=== PATIENT | female | born 1940 | race Caucasian/White ===

== ENCOUNTER 2023-08-03 10:10 | Observation (INO) | payer MEDICARE, SELFPAY ==
[2023-08-03 10:11] VITALS: BP 126/73; PULSE 64; RESP 15; TEMP 36.2; O2SAT 96; BMI 22.8
--- NOTE | 2023-08-03 10:29 | EKG12_ITS ---
Test Reason : NAUSEA Blood Pressure : / mmHG Vent. Rate : 048 BPM Atrial Rate : 048 BPM P-R Int : 152 ms QRS Dur : 088 ms QT Int : 462 ms P-R-T Axes : -07 -20 023 degrees QTc Int : 412 ms Sinus bradycardia Moderate voltage criteria for LVH, may be normal variant ( Sokolow-Hare , [place] product ) Borderline ECG Confirmed by CATY GARCIA, EBONY ([id number]), editor in chief MINNIE MITCHELL ([id number]) on 08/06/2023 10:43:58 AM Referred By: SAMMY/MADISYN Confirmed By:EBONY BYRNE MD
--- NOTE | 2023-08-03 10:50 | NURSING ---
NO OLD EKGS
--- NOTE | 2023-08-03 10:56 | EX.ED.DYSGE1 ---
HPI History of Present Illness Chief Complaint: Nausea/Vomiting Narrative Narrative: 82-year-old female presents with nausea and vomiting/dry heaving that she has had for the last week. She and her relate history that on Friday of the week before last, they flew to [place] and then flew home. Everyone started having symptoms of URI/cold symptoms. On Friday of last week, 7 days ago, she began having nausea and vomiting. She tested positive for COVID at that time, then again later in the week. She states that now she is currently dry heaving but when she does vomit it is liquid without any hematemesis. She is not having diarrhea. No prior abdominal surgeries. No abdominal pain. She denies other symptoms except for the nausea and dry heaving, although she may feel lightheaded and dizzy at times. No headaches. It is not necessarily worse with standing. [facility] Medical History (Updated 08/03/23 @ 12:05 by Miguel Gant MD) COVID Home Medications aspirin 81 mg tablet,delayed release (Adult Low Dose Aspirin) 81 mg PO DAILY 08/03/23 [History Last Taken Unknown] calcium carb-ergocalciferol (vit D2) 600 mg calcium-200 unit tablet 1 tab PO DAILY 08/03/23 [History Last Taken Unknown] hydrochlorothiazide 25 mg tablet 25 mg PO DAILY 08/03/23 [History Last Taken Unknown] vitamin B complex (B Complex-Vitamin B12 tablet) 1 tab PO DAILY 08/03/23 [History Last Taken Unknown] Allergy/AdvReac Type Severity Reaction Status Date / Time cephalexin Allergy Mild NAUSEA,CHIL Verified 08/03/23 10:11 LS Social History Smoking Status: Never smoker ROS ROS ED ROS Narrative Constitutional: No fever, no chills. HEENT: No sore throat. No neck pain. No loss of vision. No rhinorrhea. Cardiovascular: No chest pain. No palpitations. No pedal edema. Respiratory: No cough, no shortness of breath. Abdominal: No abdominal pain. Positive nausea and vomiting/dry heaving. No diarrhea. Genitourinary: No dysuria. No hematuria. Musculoskeletal: No myalgias. No arthralgias. Neurologic: No headaches. No dizziness. No lightheadedness. Skin: No rash. No change in color. Psychiatric: No depression. No anxiety. EXAM Physical Exam Narrative Exam Narrative: Afebrile. Vital signs noted. HEENT: Normocephalic. Atraumatic. PERRL, EOMI. Neck soft and supple. No point tenderness or step off. Cardiovascular: Regular rate and rhythm. No murmurs, rubs, or gallops appreciated. Respiratory: No tachypnea. Lungs clear to auscultation bilaterally. Gastrointestinal: Abdomen soft, nontender, with normoactive bowel sounds. No rebound or guarding. Neurological: Awake. Alert. Nonfocal, nonlateralizing. Skin: No rash. Normal color. No pallor. Musculoskeletal: No pedal edema. Full range of motion extremities. Const Vital Signs: 08/03/23 10:11 08/03/23 11:59 Temperature 97.2 F L 97.8 F Temperature Source Temporal Oral Pulse Rate 64 60 Respiratory Rate 15 18 Blood Pressure 126/73 H 156/92 H Blood Pressure Mean 90 113 Pulse Ox 96 97 Oxygen Delivery Method Room Air Room Air MDM MDM MDM Narrative Medical decision making narrative: In the differential diagnosis is COVID-19 with GI symptoms versus small bowel obstruction. I do have lower suspicion for bowel obstruction as she has not had prior surgeries. I will obtain abdominal series x-rays. She will be treated symptomatically with IV fluids and ondansetron. Also the differential diagnosis is pancreatitis, but once again she is not having any abdominal pain, but I will obtain CBC, CMP, and lipase is also to look for dehydration. She will be bolused normal saline 1 L intravenously. RN ordered EKG was obtained and interpreted by myself independently as normal sinus rhythm/bradycardia at 48 bpm with out ectopy or acute ST changes. No STEMI. I reviewed her laboratory work and she has a low white count of 3.7 which is consistent with her diagnosis of COVID. Hemoglobin slightly hemoconcentrated at 15.5, hematocrit 43.7, platelet count 205. Sodium is low at 126 with a potassium of 2.9, chloride 89 consistent with dehydration. BUN is normal at 7, creatinine 0.55. Her potassium will be replaced intravenously. Given her hyponatremia and hypokalemia, I discussed patient with Dr. Nando Negron for observation. It was not felt that she needed PCU because her EKG shows no sign of ectopy. Disposition is assigned to observation. Patient is in stable condition. History & Record Review Discussion w/independent historian: Patient and Family Additional record(s) reviewed:: Prior ED visit Lab Data Attestation: I reviewed the patient's lab results. Labs: Laboratory Results - last 24 hr 08/03/23 10:50 WBC 3.7 L RBC 5.23 Hgb 15.5 H Hct 43.7 MCV 83.6 MCH 29.6 MCHC 35.5 RDW Std Deviation 36.2 RDW Coeff of Erinn 11.9 Plt Count 205 MPV 10.7 Immature Gran % (Auto) 0.500 Neut % (Auto) 62.2 Lymph % (Auto) 18.6 L Victoria % (Auto) 16.8 H Eos % (Auto) 1.4 Baso % (Auto) 0.5 Absolute Neuts (auto) 2.3 Absolute Lymphs (auto) 0.69 L Nucleated RBC % 0 Sodium 126 L Potassium 2.9 L Chloride 89 L Carbon Dioxide 29.0 Anion Gap 8 BUN 7 Creatinine 0.55 Estim Creat Clear Calc 34.49 Est GFR (MDRD) Af Amer 135 Est GFR (MDRD) Non-Af 112 BUN/Creatinine Ratio 12.7 Glucose 106 Calcium 8.8 Total Bilirubin 0.60 AST 27 ALT 21 Alkaline Phosphatase 67 Total Protein 6.5 Albumin 3.3 Globulin 3.2 Albumin/Globulin Ratio 1.0 Lipase 77 H Management Discussion w/another healthcare provider: Hospitalist (Dr. Cline) Discharge Plan Dx/Rx/DC Orders Clinical Impression: Hyponatremia, Nausea and vomiting, Hypokalemia Disposition Disposition: Acute Care Hospital [facility]
[2023-08-03] MEDS: Ondansetron 4 MG/2 ML Vial IV (11:02)
[2023-08-03] MEDS: 0.9% Normal Saline 1,000 ML 1000 ML IV (11:02)
[2023-08-03 11:09] LABS: Absolute Lymphocyte Count 0.69 X10^3/uL (0.83-4.51); Absolute Neutrophil Count 2.3 X10^3/uL (2.0-7.7); Basophil# 0.02 X10^3/uL; Basophil% 0.5 % (0-1); Eosinophil# 0.05 X10^3/uL; Eosinophils% 1.4 % (0-5); Hematocrit 43.7 % (37-47); Hemoglobin 15.5 g/dL (12.0-15.0); Lymphocyte # 0.69 X10^3/ul (0.83-4.51); Lymphocyte % 18.6 % (19-41); Mean Corp Hgb Conc 35.5 g/dL (32-36); Mean Corpuscular Hgb 29.6 pg (27.0-32.0); Mean Corpuscular Volume 83.6 fL (81-99); Mean Platelet Vol. 10.7 fl (6.2-12.0); Monocyte# 0.62 X10^3/uL; Monocyte% 16.8 % (0-10); NRBC Flagged by Analyzer 0 % (0-5); Neutrophil % 62.2 % (47-70); Platelet Count 205 K/mm3 (150-450); RBC Distribution Width CV 11.9 % (11.6-14.6); RBC Distribution Width SD 36.2 fl (35.1-43.9); Red Blood Count 5.23 M/mm3 (4.2-5.4); White Blood Count 3.7 K/mm3 (4.4-11.0)
--- NOTE | 2023-08-03 11:15 | RAD_ITS ---
STUDY: X-RAY - ACUTE ABDOMINAL SERIES REASON FOR EXAM: Female, 82 years old. Nausea and vomiting TECHNIQUE: Single view of the chest. Supine, and erect view(s) of the abdomen were obtained. COMPARISON: None. FINDINGS: The lungs are clear and expanded. Normal size heart. Normal mediastinum and ivk. Normal visualized pulmonary arteries. There is atherosclerotic calcification of the aortic arch with tortuosity. There is a normal bowel gas pattern. The soft tissue structures of the abdomen and pelvis are unremarkable. There is demineralization of the visualized osseous structures. There is mild degenerative change of the spine. RAD/Acute Abdomen Inc Chest IMPRESSION: No obstruction. No focal infiltrate. Electronically Signed: Cesar Ferreira MD at 12:18 EDT ,
[2023-08-03 11:21] LABS: AST(SGOT) 27 U/L (15-37); Alanine Aminotransfer ALT/SGPT 21 U/L (13-56); Albumin, Serum 3.3 g/dL (3.2-5.0); Alkaline Phosphatase 67 U/L (45-117); Anion Gap 8 (5-15); BUN 7 mg/dL (7-18); BUN/Creat Ratio 12.7 RATIO (10-20); Calcium,Total 8.8 mg/dL (8.5-10.1); Chloride 89 mmol/L (98-107); Creatinine, Serum 0.55 mg/dL (0.55-1.02); EST Glomerular Filtration Rate 112 mL/min (>60); Est Glom Filt Rate - Afr Amer 135 mL/min (>60); Estimated Creatinine Clearance 34.49 ml/min; Globulin 3.2 g/dL (2.2-4.2); Glucose 106 mg/dL (74-106); Lipase 77 U/L (13-75); Potassium 2.9 mmol/L (3.5-5.1); Protein, Total 6.5 g/dL (6.4-8.2); Sodium Level 126 mmol/L (136-145)
[2023-08-03] MEDS: Potassium Chloride Oral Tablet 20 MEQ 40 MEQ PO (11:50)
[2023-08-03 11:59] VITALS: BP 156/92; PULSE 60; RESP 18; TEMP 36.6; O2SAT 97
--- NOTE | 2023-08-03 12:02 | NURSING ---
DR CHINYERE MARS
--- NOTE | 2023-08-03 12:27 | PCM.HP.STD ---
[facility] - General General Date of Service: 08/03/23 Chief Complaint: nausea. dry heaves. HPI Narrative NICOLE PAGAN, is a 82 F who presents presents with a week history of nausea and dry heaves. Patient contracted COVID and has been feeling this way ever since. Unable to tolerate any oral. Since his symptoms have been going on for so long, patient presented to the emergency room. In the emergency room, patient was noted to have a sodium 126 and potassium of 2.9. Patient did receive IV fluids as well as potassium replacement. Patient does take hydrochlorothiazide for hypertension. Patient has no baseline labs available in our system but has never been told that she has had any issues with her potassium or sodium in the past. COUNT INCLUDES THE [facility] Medical History (Updated 08/03/23 @ 12:[address] Nando Cline DO) HTN (hypertension) Home Medications aspirin 81 mg tablet,delayed release (Adult Low Dose Aspirin) 81 mg PO DAILY 08/03/23 [History Last Taken Unknown] calcium carb-ergocalciferol (vit D2) 600 mg calcium-200 unit tablet 1 tab PO DAILY 08/03/23 [History Last Taken Unknown] hydrochlorothiazide 25 mg tablet 25 mg PO DAILY 08/03/23 [History Last Taken Unknown] vitamin B complex (B Complex-Vitamin B12 tablet) 1 tab PO DAILY 08/03/23 [History Last Taken Unknown] Allergy/AdvReac Type Severity Reaction Status Date / Time cephalexin Allergy Mild NAUSEA,CHIL Verified 08/03/23 10:11 LS Social History Smoking Status: Never smoker ROS ROS Narrative No fever or chills. No shortness of breath. All review of systems were negative except as mentioned above in the history of present illness and the other review of systems. Vital Signs Vital Signs Vital Signs: 08/03/23 10:11 08/03/23 11:59 Temperature 36.2 C L 36.6 C Temperature Source Temporal Oral Pulse Rate 64 60 Respiratory Rate 15 18 Blood Pressure 126/73 H 156/92 H Blood Pressure Mean 90 113 Pulse Ox 96 97 Oxygen Delivery Method Room Air Room Air Weight Weight: 51.256 kg Body Mass Index (BMI) 22.8 Physical Exam Const alert and no apparent distress Constitutional Narrative: Appears younger than stated age. HEENT normocephalic HEENT Narrative: Mucous membranes are slightly dry Resp normal respiratory effort, no retractions, no use of accessory muscles and clear to auscultation bilaterally Cardio regular rate, regular rhythm, S1 normal heart sound and S2 normal heart sound GI normal to inspection, nondistended, normoactive bowel sounds, soft to palpation, non-tender and non-distended Extremity normal to inspection Neuro moves all extremities and no focal motor deficits Sensorium / Orientation: awake and alert Psych affect normal Results Lab / Micro Data Attestation: I reviewed the patient's lab results. 08/03/23 10:50 08/03/23 10:50 Labs: Laboratory Results - last 24 hr 08/03/23 10:50: WBC 3.7 L, RBC 5.23, Hgb 15.5 H, Hct 43.7, MCV 83.6, MCH 29.6, MCHC 35.5, RDW Std Deviation 36.2, RDW Coeff of Erinn 11.9, Plt Count 205, MPV 10.7, Immature Gran % (Auto) 0.500, Neut % (Auto) 62.2, Lymph % (Auto) 18.6 L, Eagle % (Auto) 16.8 H, Eos % (Auto) 1.4, Baso % (Auto) 0.5, Absolute Neuts (auto) 2.3, Absolute Lymphs (auto) 0.69 L, Nucleated RBC % 0, Sodium 126 L, Potassium 2.9 L, Chloride 89 L, Carbon Dioxide 29.0, Anion Gap 8, BUN 7, Creatinine 0.55, Estim Creat Clear Calc 34.49, Est GFR (MDRD) Af Amer 135, Est GFR (MDRD) Non-Af 112, BUN/Creatinine Ratio 12.7, Glucose 106, Calcium 8.8, Total Bilirubin 0.60, AST 27, ALT 21, Alkaline Phosphatase 67, Total Protein 6.5, Albumin 3.3, Globulin 3.2, Albumin/Globulin Ratio 1.0, Lipase 77 H EKG Initial EKG: Attestation: I personally reviewed and interpreted this EKG as follows: Prior EKG tracings: available for review EKG Rhythm Intrepretation: Sinus Rhythm Radiology Impression Acute Abdomen Series 08/03/23 11:15 IMPRESSION: No obstruction. No focal infiltrate. Electronically Signed: Cesar Ferreira MD at 12:18 EDT , Assessment & Plan Assessment/Plan (1) Hyponatremia: PLAN: Secondary to dehydration, lack of adequate oral intake but also likely compounded by patient taking hydrochlorothiazide. Patient received IV fluids in the emergency room and will continue to replace on the floor. Also hold hydrochlorothiazide. I would recommend holding hydrochlorothiazide moving forward as her sodium is concerning to be much lower than would be anticipated just with dehydration. If patient would require some antihypertensives upon discharge I would utilize some other agent. (2) Hypokalemia: PLAN: As above with hyponatremia due to dehydration, lack of oral intake and hydrochlorothiazide. Did receive replacement in the emergency room and will continue with replacement on the floor. Check a magnesium level. (3) Nausea and vomiting: QUALIFIERS: Vomiting type: unspecified Qualified Code(s): R11.2 - Nausea with vomiting, unspecified PLAN: Active dry heaves on actual emesis. As needed medications as needed Diet as tolerated May be related with COVID-19. (4) COVID: PLAN: Contracted about 7 days ago. Patient will need to quarantine through the 6. Patient out of window for treatment nor is she ill enough to warrant treatment at this time. Supportive management PLAN: Plan VTE prophylaxis: Low risk given observation status. Case discussed with the patient's and son at bedside. Discussed with the patient's daughter over the phone. Patient and family made aware that she is going to be brought under observation status which lead to potentially higher co-pay compared to an admission. Charges/Coding Visit Charges Inpatient E&M: 48213 Init Hosp L2
[2023-08-03 12:31] VITALS: BP 146/86; PULSE 58; RESP 14; TEMP 36.6; O2SAT 96
--- NOTE | 2023-08-03 12:34 | ED.RN ---
called pharmacy to inquire about IV fluid order
[2023-08-03] MEDS: KCL 40mEq in 0.9% NS 40 MEQ/1,000 ML IV.SOLN 250 MEQ IV (12:45)
[2023-08-03 13:15] VITALS: BMI 22.4
[2023-08-03 13:19] VITALS: BP 158/75; PULSE 55; RESP 16; TEMP 36.7; O2SAT 97
[2023-08-03] MEDS: KCL 20MEQ in 0.9% NS 20 MEQ/1,000 ML IV.SOLN. 150 MEQ IV (19:12)
[2023-08-03 20:18] VITALS: BP 159/68; PULSE 56; RESP 16; TEMP 36.5; O2SAT 96
[2023-08-03 22:21] VITALS: BP 156/62
[2023-08-04 02:00] VITALS: BP 155/58; PULSE 50; RESP 16; TEMP 36.8; O2SAT 97
[2023-08-04 06:44] VITALS: BP 164/56; PULSE 52; RESP 16; TEMP 36.7; O2SAT 97
[2023-08-04 07:41] LABS: Anion Gap 4 (5-15); BUN 7 mg/dL (7-18); BUN/Creat Ratio 17.3 RATIO (10-20); Calcium,Total 8.1 mg/dL (8.5-10.1); Chloride 108 mmol/L (98-107); EST Glomerular Filtration Rate 160 mL/min (>60); Est Glom Filt Rate - Afr Amer 193 mL/min (>60); Estimated Creatinine Clearance 33.85 ml/min; Glucose 94 mg/dL (74-106); Potassium 3.8 mmol/L (3.5-5.1); Sodium Level 138 mmol/L (136-145)
[2023-08-04 09:35] VITALS: BP 180/77; PULSE 55; RESP 18; TEMP 36.9; O2SAT 99
[2023-08-04] MEDS: Aspirin E.C. 81 MG Tablet PO (09:37)
[2023-08-04] MEDS: Calcium Carb/Vitamin D 1 TABLET Tablet PO (09:37)
[2023-08-04] MEDS: Vitamin B Comp W-C Capsule 1 CAP PO (09:37)
--- NOTE | 2023-08-04 10:17 | DCINST_ITS ---
Discharge Instructions Diet Discharge Diet: No restrictions Activity Discharge Activity: Return to Normal Activity Dressing / Incision Call your doctor if you observe: Fever of 101 or Higher, Shortness of breath, Dizziness, Fainting spells, Swelling in the ankles, Chest pain and Increased palpitations (irregular heartbeat) Follow Up Care Test Results: Test results from this visit will be discussed in further detail at your follow- up appointment, if applicable. Discharge Plan Admission Admit Date/Time: 08/03/23 12:23 Attending Provider: Glenn Quinonez Primary Care Provider: Care Physician,No Primary Consulting Providers: Nando Cline Instructions Additional Instructions / Restrictions: Follow-up with your primary care physician in 3 to 5 days to obtain outpatient lab work to monitor your sodium as it was low to 126 when you present to the hospital. This could have been a combination of dehydration as well as vomiting and your hydrochlorothiazide. I will restart your hydrochlorothiazide however I do recommend following your sodium as an outpatient and if it does drop again I would recommend switching blood pressure medications. Discharge Orders/Prescriptions Prescriptions: Continued aspirin [Adult Low Dose Aspirin] 81 mg tablet,delayed release (DR/EC) 81 mg PO DAILY hydrochlorothiazide 25 mg tablet 25 mg PO DAILY calcium carbonate-vitamin D2 600 mg calcium- 200 unit tablet 1 tab PO DAILY vitamin B complex [B Complex-Vitamin B12] Tablet 1 tab PO DAILY Referrals / Follow Up: Care Physician,No Primary [Primary Care Provider] - Disposition Disposition (needs filled in before D/C Order can be placed): Home, Self Care
[2023-08-04] MEDS: hydroCHLOROthiazide 25 MG Tablet PO (11:12)
--- NOTE | 2023-08-04 12:50 | DS.PCM_ITS ---
Providers Date of Admission: 08/03/23 Primary Care Physician: No Primary Care Phys Reason For Visit: HYPOKALEMIA Diagnosis Discharge Diagnosis (1) Hyponatremia: Status: Acute Code(s): E87.1 - Hypo-osmolality and hyponatremia (2) Hypokalemia: Status: Acute Code(s): E87.6 - Hypokalemia (3) Nausea and vomiting: Status: Acute Code(s): R11.2 - Nausea with vomiting, unspecified Qualifiers: Vomiting type: unspecified Qualified Code(s): R11.2 - Nausea with vomiting, unspecified (4) COVID: Status: Acute Code(s): U07.1 - COVID-19 Medications at Discharge Home Medications aspirin 81 mg tablet,delayed release (Adult Low Dose Aspirin) 81 mg PO DAILY 08/03/23 calcium carb-ergocalciferol (vit D2) 600 mg calcium-200 unit tablet 1 tab PO DAILY 08/03/23 hydrochlorothiazide 25 mg tablet 25 mg PO DAILY 08/03/23 vitamin B complex (B Complex-Vitamin B12 tablet) 1 tab PO DAILY 08/03/23 Hospital Course Operations None Procedures None Summary of Care Provided Minutes Spent on Discharge: 33 Hospital Course: Per HPI: NICOLE PAGAN, is a 82 F who presents presents with a week history of nausea and dry heaves. Patient contracted COVID and has been feeling this way ever since. Unable to tolerate any oral. Since his symptoms have been going on for so long, patient presented to the emergency room. In the emergency room, patient was noted to have a sodium 126 and potassium of 2.9. Patient did receive IV fluids as well as potassium replacement. Patient does take hydrochlorothiazide for hypertension. Patient has no baseline labs available in our system but has never been told that she has had any issues with her potassium or sodium in the past. Hospital Course: 1. Nausea vomiting with hyponatremia and hypokalemia secondary to COVID? 82-year-old female presented to the hospital with nausea and vomiting from COVID. Symptoms started about a week ago. She is not requiring any oxygen so she was not started on any steroids or remdesivir. Today she states that her nausea and vomiting have completely resolved and she was able to tolerate breakfast prior to being discharged. I did discuss with her the plan for possible discharge today and she expressed understanding of the risk benefits of going home and would like to go home today. Of note she does have a history of hypertension is on hydrochlorothiazide, this was held on admission secondary to her hyponatremia down to 126 however today on lab work at 138 and I feel that this is likely combination of both her hydrochlorothiazide as well as her vomiting and dehydration. Given the fact that her systolics today were 180 we will restart her hydrochlorothiazide and have her follow-up with her PCP in 3 to 5 days for outpatient monitoring. If her sodium does drop again would recommend transitioning to a different antihypertensive medication. Physical Exam Narrative General: Alert, Oriented x3, Cooperative, No apparent distress HEENT: Atraumatic, PERRLA, EOMI, Normocephalic Oral: Moist Mucosa Neck: Supple, No JVD Lungs: Diminished, Normal air movement, No rhonchi, No wheeze, No rales Cardiovascular: Regular rate, Regular Rhythm, Normal S1, Normal S2, No murmurs Abdomen: Soft, Non Tender, Non-Distended, No Hepato-splenomegaly Extremities: No edema, Capillary Refill Less than 3 Seconds Skin: No rashes, No breakdown Musculoskeletal: No Tenderness to Palpation of Joints or Extremities Neurological: Cranial nerves II-XII grossly intact, Motor Exam 5/5 strength throughout, Sensory exam intact to light touch and pain Psych/Mental Status: Normal Affect, Appropriate Weight / BMI Weight Weight: 110 lb 14.28 oz Body Mass Index (BMI) 22.4 ABG / Lab / Microbiology Data 08/03/23 10:50 08/04/23 05:39 Laboratory: Laboratory Results - last 24 hr 08/04/23 05:39: Sodium 138, Potassium 3.8, Chloride 108 H, Carbon Dioxide 26.0, Anion Gap 4 L, BUN 7, Creatinine 0.40 L, Estim Creat Clear Calc 33.85, Est GFR (MDRD) Af Amer 193, Est GFR (MDRD) Non-Af 160, BUN/Creatinine Ratio 17.3, Glucose 94, Calcium 8.1 L D/C Instructions Discharge Diet: No restrictions Call your doctor if you observe: Fever of 101 or Higher, Shortness of breath, Dizziness, Fainting spells, Swelling in the ankles, Chest pain and Increased palpitations (irregular heartbeat) Meaningful Use Info Meaningful Use Diagnoses (Choose all that apply): None applicable Discharge Plan Admission Admit Date/Time: 08/03/23 12:23 Attending Provider: Glenn Quinonez Primary Care Provider: Care Physician,No Primary Consulting Providers: Nando Cline Instructions Additional Instructions / Restrictions: Follow-up with your primary care physician in 3 to 5 days to obtain outpatient lab work to monitor your sodium as it was low to 126 when you present to the hospital. This could have been a combination of dehydration as well as vomiting and your hydrochlorothiazide. I will restart your hydrochlorothiazide however I do recommend following your sodium as an outpatient and if it does drop again I would recommend switching blood pressure medications. Discharge Orders/Prescriptions Prescriptions: Continued aspirin [Adult Low Dose Aspirin] 81 mg tablet,delayed release (DR/EC) 81 mg PO DAILY hydrochlorothiazide 25 mg tablet 25 mg PO DAILY calcium carbonate-vitamin D2 600 mg calcium- 200 unit tablet 1 tab PO DAILY vitamin B complex [B Complex-Vitamin B12] Tablet 1 tab PO DAILY Referrals / Follow Up: Care Physician,No Primary [Primary Care Provider] - Disposition Disposition (needs filled in before D/C Order can be placed): Home, Self Care Charges/Coding Visit Charges Inpatient E&M: 81333 Disch Hosp >30min
== END 2023-08-04 11:17 | disposition home or self-care (01) ==
LOC: ED 12:17 → MS3 12:56
PROVIDERS: Emergency Provider Emergency Medicine; Visit Provider Family Medicine
DX: U07.1 COVID-19 (principal); E87.1 Hypo-osmolality and hyponatremia; R11.2 Nausea with vomiting, unspecified; R00.1 Bradycardia, unspecified; Z79.82 Long term (current) use of aspirin; I10 Essential (primary) hypertension; E87.6 Hypokalemia; Z79.899 Other long term (current) drug therapy
CPT/HCPCS: 36415; 74022; 80048; 80053; 83690; 85025; 93005; 97802; 99285; J7030; A4216; J2405

== ENCOUNTER → 2025-02-07 | Outpatient (CLI) | payer MEDICARE, SELFPAY ==
--- NOTE | 2025-02-07 09:46 | RAD_ITS ---
PROCEDURE: ESOPHAGUS DUAL CONTRAST REASON FOR EXAM: Continual throat clearing. No difficulty with swallowing. TECHNIQUE: The patient ingested barium. Multiple images of the esophagus were obtained. COMPARISON: None. FINDINGS: There is no evidence of esophageal obstruction. No mass lesion is seen. No evidence of gastroesophageal reflux. The patient ingested a 12 mm tablet of barium without any difficulty. RAD/Esophagus Dual Contrast IMPRESSION: No significant abnormality is seen. Reading Location: [facility]
== END | disposition home or self-care (01) ==
LOC: RAD 09:40
PROVIDERS: Referring Provider Otolaryngology; Visit Provider Otolaryngology
DX: K21.9 Gastro-esophageal reflux disease without esophagitis (principal)
CPT/HCPCS: 74221

== ENCOUNTER 2025-10-01 07:49 | Emergency (ER) | payer MEDICARE, SELFPAY ==
[2025-10-01 07:50] VITALS: BP 148/92; PULSE 92; RESP 16; TEMP 36.9; O2SAT 96; BMI 23.7
--- NOTE | 2025-10-01 08:01 | ED.VIS.GI ---
HPI HPI - GI History of Present Illness Chief Complaint: Constipation Informant: patient and spouse/S.O. Diarrhea/Melena/Hematochezia GI Symptom: Negative for Diarrhea, Melena or Hematochezia Associated Symptoms Associated Symptoms: Negative for Dysuria or Frequency Narrative Narrative: 84-year-old female had recent left knee surgery for meniscal tear and had a scope done at a [facility] facility about 8 days ago. She was on narcotic pain medication which she stopped taking. Said she never has a history of constipation she has been constipated now for the last 4 days. Denies any abdominal pain or vomiting. No fever. Denies any dysuria. No prior abdominal surgeries. Prior similar symptoms: No Recent Illness/Hospitalization: No PFSH [facility] Medical History HTN (hypertension) Home Medications ?Medication ?Instructions ?Recorded ?Last Taken ?Type aspirin 81 mg tablet,delayed 81 mg PO DAILY 08/03/23 Unknown History release (Adult Low Dose Aspirin) calcium carb-ergocalciferol (vit 1 tab PO DAILY 08/03/23 Unknown History D2) 600 mg calcium-200 unit tablet hydrochlorothiazide 25 mg tablet 25 mg PO DAILY 08/03/23 Unknown History vitamin B complex (B 1 tab PO DAILY 08/03/23 Unknown History Complex-Vitamin B12 tablet) Allergy/AdvReac Type Severity Reaction Status Date / Time cephalexin Allergy Mild NAUSEA,CHIL Verified 10/01/25 07:50 LS Social History Smoking Status: Never smoker ROS ROS ED ROS Narrative Constipation. Denies nausea, vomiting, diarrhea, fever or dysuria. Denies any abdominal pain. Constitutional Constitutional ED: Denies chills or fever(s) ENT ENT ED: Denies ear pain Cardiovascular Cardiovascular: Denies chest pain Respiratory/Chest Respiratory/Chest: Denies cough or dyspnea Gastrointestinal Gastrointestinal: Reports constipation; Denies abdominal pain, diarrhea, melena, nausea or vomiting Genitourinary Genitourinary ED: Denies dysuria or hematuria Musculoskeletal Musculoskeletal: Denies arthralgias or back pain Integumentary Denies abscess Neurologic Neurologic: Denies headache(s) Psychiatric Psychiatric: Denies anxiety Endocrine Endocrinology: Denies polydipsia Hematologic/Lymphatic Hematologic/Lymphatic: Denies easy bleeding, easy bruising or lymphadenopathy Allergic/Immunologic Allergic/Immunologic ED: Denies mouth swelling, tongue swelling or urticaria EXAM Physical Exam Narrative Exam Narrative: 84-year-old female standing upright in the room. Vital signs are stable afebrile. No acute distress. H EENT exam pupils round react light. Moist mutes membranes. Neck nontender no lymphadenopathy. Back nontender. Lungs clear to auscultation bilaterally. Heart regular rhythm rate about 90 no murmur. Chest wall ribs nontender. Abdomen soft nondistended normal bowel sounds without peritoneal signs. No reproducible tenderness. No pulsatile mass. No distention or obstruction. Moving all 4 extremities. Mild swelling left knee from recent surgery. Ambulating without difficulty. Patient is awake alert. Answering questions following commands. She is accompanied by family member. Const Vital Signs: 10/01/25 07:50 Temperature 98.5 F Temperature Source Oral Pulse Rate 92 Respiratory Rate 16 Blood Pressure 148/92 H Blood Pressure Mean 110 Pulse Ox 96 Oxygen Delivery Method Room Air MDM MDM MDM Narrative Medical decision making narrative: 84-year-old female constipation which she typically does not have. Has a benign abdomen. I do not think she needs labs I will obtain a KUB. She is not having any reproducible abdominal pain or complaining of any abdominal pain. Repeat exam around 8:30 AM no change patient was given the option of going home with GoLytely to help relieve her constipation or soapsuds enema. She preferred to try to get this resolved as soon as possible due to discomfort so she wanted to soapsuds enema which is going to be done by nursing. The patient had a large bowel movement after the soapsuds enema. Is feeling improved. She will be discharged home. Doing well around 9:20 AM. History & Record Review Discussion w/independent historian: Patient Additional record(s) reviewed:: Prior ED visit and Prior labs Radiography Diagnostic Testing: Clinical Impression(s) from Imaging Studies KUB X-Ray 10/01/25 08:10 IMPRESSION: Large amount of rectal stool. Reading [facility] KUB, single view, interpreted by myself shows increased stool in the rectum. Consistent with constipation. There is no signs of bowel obstruction. Discharge Plan Triage Chief Complaint: Constipation ED Provider: Costa La Dx/Rx/DC Orders Clinical Impression: Constipation Instructions: ED Constipation (Adult) Prescriptions: No Action aspirin [Adult Low Dose Aspirin] 81 mg tablet,delayed release (DR/EC) 81 mg PO DAILY hydrochlorothiazide 25 mg tablet 25 mg PO DAILY calcium carbonate-vitamin D2 600 mg calcium- 200 unit tablet 1 tab PO DAILY vitamin B complex [B Complex-Vitamin B12] Tablet 1 tab PO DAILY Primary Care Provider: Care Physician,No Primary Referrals: [facility] Doctor,Out of [Non-Staff, Medical] Activity Restrictions/Additional Instructions: Plenty of fluids, fruits and vegetables, fiber. [id number] magnesium citrate as needed for constipation. Follow-up with your doctor as needed. Print Language: Trinidadian Disposition Disposition: Home, Self Care
--- NOTE | 2025-10-01 08:10 | RAD_ITS ---
PROCEDURE: RAD/Abdomen Single View
[2025-10-01 09:56] VITALS: BP 112/67; PULSE 78; RESP 18; TEMP 36.6; O2SAT 98
== END 2025-10-01 09:57 | disposition home or self-care (01) ==
PROVIDERS: Emergency Provider Emergency Medicine; Visit Provider Emergency Medicine
DX: K59.00 Constipation, unspecified (principal); I10 Essential (primary) hypertension; Z79.899 Other long term (current) drug therapy; Z79.82 Long term (current) use of aspirin; Z98.890 Other specified postprocedural states
CPT/HCPCS: 74018; 99284